=== PATIENT | female | born 1985 | race Caucasian/White ===

== ENCOUNTER 2025-06-16 00:05 | Emergency (ER) | payer OTHER, SELFPAY ==
[2025-06-16 00:05] VITALS: BP 153/70; PULSE 92; RESP 19; TEMP 36.6; O2SAT 98; BMI 37.0
--- NOTE | 2025-06-16 00:19 | CT_ITS ---
PROCEDURE: BRAIN/HEAD WITHOUT CONTRAST 06/16/2025 REASON FOR EXAM: HEAD INJURY TECHNIQUE: BRAIN/HEAD WITHOUT CONTRAST Coronal and Sagittal reconstruction series were provided. One or more dose reduction techniques were used (e.g., Automated exposure control, adjustment of the mA and/or kV according to patient size, use of iterative reconstruction technique. RADIATION DOSE SUMMARY: CTDlvol: 45 mGy DLP: 796. MGycm COMPARISON: No FINDINGS: No abnormal brain densities. No intracranial hemorrhage. No hydrocephalus or midline shift. No acute scalp or skull pathology. Unremarkable orbits. Clear sinuses. CT/Brain/Head without Contrast IMPRESSION: No acute intracranial findings. Reading Location: [place] [id number]
[2025-06-16] MEDS: Lidocaine 2% /Epi 1:100 (20ml) 20 ML VIAL INFILT (00:24)
--- OUTSIDE RECORDS SUMMARY | 2025-06-16 00:41 | XMS RPT_ITS | CCD ---
Author Organization [facility] Care Team Providers Care Bartender Manager Name Role Phone Emmy Josse Kehinde Primary Care Provider JOSSE BOOTH Primary Care Unavailable JORGE RODRÍGUEZ Attending Unavailable Juan Ramirez Attending Unavailable Juan Ramirez Attending Unavailable Medications Completed/Discontinued Medications Medication Drug Class(es) Dates Sig (Normalized) Sig (Original) EPINEPHrine / Lidocaine (2 sources) Antiarrhythmic, alpha-Adrenergic Agonist, beta-Adrenergic Agonist, Catecholamine, Amide Local Anesthetic Start: 01-13-2024 End: 01-13-2024 lidocaine-EPINEPH rine (Xylocaine W/EPI) 1 %-1:[id number] injection 5 mL 10 ml lidocaine hydrochloride 10 mg/ml injection (1 source) Antiarrhythmic, Amide Local Anesthetic Start: 08-20-2019 End: 08-20-2019 lidocaine PF 1 % injection 5 mL Problems Active Problems Problem Classification Problem Date Documented Da te Episodic/Chronic Administrative/social admission (1 source) Encounter for pre-employment examination; Translations: [Encounter for pre-employment examination] Onset: 01-13-2025 Episodic Allergic reactions (2 sources) Atopic dermatitis; Translations: [Atopic dermatitis, unspecified] Onset: 07-04-2020 09-13-2022 Chronic Open wounds of extremities (5 sources) Laceration of index finger; Translations: [Laceration of left wrist] Onset: 01-13-2024 01-13-2024 Episodic Past or Other Problems Problem Classification Problem Date Documented Da te Episodic/Chronic Residual codes; unclassified (2 sources) Family history of diabetes mellitus in first degree relative; Translations: [Family history of diabetes mellitus] Onset: 07-13-2020 09-13-2022 Episodic Results Test Name Value Interpretation Reference Range Facil ity Office Visit Reporton 2024 Office Visit Report 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 Allergies No Known Allergies Allergy (Unverified 01/13/25 14:44) Office Procedures [facility] Billing Sheet Testing Breath Alcohol Test Pre-Employment: Yes Pre-Employment Drug Screen: Yes Pre-Employment PE: Yes 01/20/2548 Date Juan IZQUIERDO Cosigner Signature: Date (if applicable) CC: Normal [facility] Urgent Care Visit Reporton 0 01-13-2025 Urgent Care Visit Report [facility] [address], [address] [place] [address] OFFICE VISIT Date of Service: 01/13/25 MR#: [id number] Acct: [id number] Name: SAVANNAH TINOCO Rep #: [id number] : 1985 Provider: TIMBO Cyr Age/Sex: 39/F Location: [facility] Status: Signed Intake Intake Visit 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 HPI HPI Details: SAVANNAH TINOCO, is a 39 F who presents to the office today for Office Procedures Physical Exam Coding PE Coding Pre-employment PE: Yes Coding Level of Care Code No Charge Diagnoses Encounter for pre-employment health screening examination Z02.1 Assessment and Plan Assessment and Plan (1) Encounter for pre-employment health screening examination: Status: Acute 01/13/25 1508 Date Juan Rothman Signature: Date (if applicable) CC: Normal [facility] Progress Noteon 01-16-2024 Progress Note Chart reviewed of ED follow up Seen in [facility] ED on 01/13/24 Reason: laceration Discharge instructions: Follow up with Occupational Health in 1 week [employer] [address] [facility] [phone] Called number of record,voicemail was full, unable to leave message. ED message and education sent via [employer] . If patient calls back, please assist with scheduling a ED follow up appointment. Normal [facility] ED Nursing Noteon 01-13-2024 ED Nursing Note Dc instructions and follow up care given to pt. Pt verbalizes understanding. Pt getting drug screen prior to dc Normal [facility] ED Nursing Note Pt presents to the ED w c/o a laceration. 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 Wound cleaned upon arrival. Pain level 3/10. Last tdap unknown Normal [facility] ED Provider Noteon ED Provider Note Emergency Department Encounter [facility] ED Patient: Savannah Tinoco : 1985 Date of Evaluation: 01/13/2024 ED Provider: Jorge Rodríguez DO Chief Complaint Chief Complaint Patient presents with Laceration AKHIOK Savannah Tinoco is a 38 y.o. female who presents to the emergency department complaining of laceration. 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 She sustained a small laceration. Denies numbness or tingling or other complaints. Unknown last tetanus vaccination. Additional history obtained from : n/a Barriers to obtaining history from patient: n/a ROS: Review of Systems completed as follows: (Bold = positive, Not bold = negative) GENERAL: fevers, chills, malaise ENT: runny nose, congestion, sore throat, ear pain NEURO: weakness, numbness of tingling, headache CARDIOVASCULAR: chest pain, syncope PULMONARY: shortness of breath, cough, wheezing GASTROINTESTINAL: nausea, vomiting, abdominal pain, diarrhea, constipation, MUSCULOSKELETAL: pain GENITAL/URINARY: dysuria, hematuria, increased urinary frequency, hesitancy, flank pain SKIN: rash, lesions, wound Past History Past Medical History: Diagnosis Date Family history of diabetes mellitus in father Mehran Tinoco, AROLDO 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 No pertinent surgical history. Social History Socioeconomic History Marital status: Single Tobacco Use Smoking status: Never Smokeless tobacco: Never Vaping Use Vaping Use: Never used Substance and Sexual Activity Alcohol use: Not Currently Drug use: Never Social History Narrative Single, engaged to Kenzei or Drinker. Employed at [employer], Since 2007. I have reviewed the history above as provided by nursing notes. Medications/Allergie s Previous Medications No medications on file No Known Allergies I have reviewed the history above as provided by nursing notes. Physical Exam ED Triage Vitals [01/13/24 0600] Temp Heart Rate Resp BP 36.9 ?C (98.5 ?F) 80 18 (!) 148/89 SpO2 Temp src Heart Rate Source Patient Position 99 % -- -- -- BP Location FiO2 (%) -- -- GENERAL: The patient appears nourished and normally developed. Vital signs as documented. EYES: PERRL. No scleral icterus or orbital trauma noted. HEENT: Mucous membranes moist. Nares patent without copious rhinorrhea. LUNGS: Lungs are clear to auscultation, without any respiratory distress. CARDIAC: Rhythm is regular. No murmur appreciated ABDOMEN: Nontender, soft, with no obvious masses, and no peritoneal signs. EXTREMITIES: Non edematous, with no obvious deformities. SKIN: 2 cm laceration to the palm of the right wrist. Mild subcutaneous fat showing. Patient has normal range of motion, normal sensation distally to the wound. There is no active bleeding. Capillary refill is normal. 2+ radial pulses. Good color, with no significant rashes. No pallor. NEURO: No obvious neurological deficits, normal sensation and strength bilaterally. Diagnostics Labs: Results for orders placed or performed in visit on 07/04/20 [facility] SURGICAL PATHOLOGY Result Value Ref Range SURGICAL PATHOLOGY REPORT SEE BELOW NA Radiographs: No orders to display Procedures/EKG: Laceration Repair Performed by: Jorge Rodríguez DO Authorized by: Jorge Rodríguez DO Consent: Consent obtained: Verbal Consent given by: Patient Risks discussed: Infection, pain, poor wound healing, vascular damage and nerve damage Alternatives discussed: No treatment [place] protocol: Patient identity confirmed: Verbally with patient Anesthesia: Anesthesia method: Local infiltration Local anesthetic: Lidocaine 1% WITH epi Laceration details: Location: Hand Hand location: L wrist Length (cm): 2 Pre-procedure details: Preparation: Patient was prepped and draped in usual sterile fashion Exploration: Hemostasis achieved with: Epinephrine and direct pressure Contaminated: no Treatment: Area cleansed with: Soap and water and Shur-Clens Amount of cleaning: Standard Irrigation solution: Tap water Skin repair: Repair method: Sutures Suture size: 4-0 Wound skin closure material used: vicryl rapide. Suture technique: Simple interrupted Number of sutures: 3 Approximation: Approximation: Close Repair type: Repair type: Simple Post-procedure details: Dressing: Open (no dressing) Procedure completion: Tolerated well, no immediate complications SCREENINGS EMERGENCY DEPARTMENT COURSE and DIFFERENTIAL DIAGNOSIS/MDM: Vitals: Vitals: 01/13/24 0600 BP: (!) 148/89 Pulse: 80 Resp: 18 Temp: 36.9 ?C (98.5 ?F) SpO2: 99% The patient presented with a chief complaint of laceration. Vital signs reviewed. Examination reveals a wound. I closed the wound as above after irrigation. I did not order x-rays and low concern for fracture, retained foreign b (more content not included)... Normal [facility] No Panel Informationon 01-13 Jorge Rodríguez DO 01/13/2024 6:30 AM Laceration Repair Performed by: Jorge Rodríguez DO Authorized by: Jorge Rodríguez DO Consent: Consent obtained: Verbal Consent given by: Patient Risks discussed: Infection, pain, poor wound healing, vascular damage and nerve damage Alternatives discussed: No treatment [place] protocol: Patient identity confirmed: Verbally with patient Anesthesia: Anesthesia method: Local infiltration Local anesthetic: Lidocaine 1% WITH epi Laceration details: Location: Hand Hand location: L wrist Length (cm): 2 Pre-procedure details: Preparation: Patient was prepped and draped in usual sterile fashion Exploration: Hemostasis achieved with: Epinephrine and direct pressure Contaminated: no Treatment: Area cleansed with: Soap and water and Shur-Clens Amount of cleaning: Standard Irrigation solution: Tap water Skin repair: Repair method: Sutures Suture size: 4-0 Wound skin closure material used: vicryl rapide. Suture technique: Simple interrupted Number of sutures: 3 Approximation: Approximation: Close Repair type: Repair type: Simple Post-procedure details: Dressing: Open (no dressing) Procedure completion: Tolerated well, no immediate complications [facility] Lac Repairon 08-20-2019 Hakeem Cope MD 08/20/2019 12:24 PM Lac Repair Date/Time: 08/20/2019 12:04 PM Performed by: Hakeem Cope MD Authorized by: Hakeem Cope MD Consent: Consent obtained: Verbal Anesthesia (see MAR for exact dosages): Anesthesia method: Local infiltration Local anesthetic: Lidocaine 1% w/o epi Laceration details: Location: Finger Finger location: L index finger Length (cm): 1.5 Repair type: Repair type: Simple Pre-procedure details: Preparation: Patient was prepped and draped in usual sterile fashion Exploration: Wound exploration: wound explored through full range of motion Contaminated: no Treatment: Area cleansed with: Betadine Amount of cleaning: Standard Irrigation solution: Sterile saline Irrigation method: Syringe Visualized foreign bodies/material removed: no Skin repair: Repair method: Sutures Suture size: 3-0 Suture material: Prolene Suture technique: Simple interrupted Number of sutures: 5 Approximation: Approximation: Close Post-procedure details: Dressing: Antibiotic ointment Patient tolerance of procedure: Tolerated well, no immediate complications [facility], [place] Vital Signs Date Time Vital Sign Value Performing Clinician Baron schmidt 01-13-2024 06:00-0500 Body temperature 98.49 [degF] Jorge Rodríguez DO [facility] 01-13-2024 06:00-0500 Diastolic blood pressure 89 mm[Hg] Jorge Nesheim DO Work Phone: [email or web address] 01-13-2024 06:00-0500 Heart rate 80 /min Jorge Nesheim DO Work Phone: [email or web address] 01-13-2024 06:00-0500 Respiratory rate 18 /min Jorge Nesheim DO Work Phone: [email or web address] 01-13-2024 06:00-0500 SaO2% (BldA) [Mass fraction] 99 % Jorge Nesheim DO Work Phone: [email or web address] 01-13-2024 06:00-0500 Systolic blood pressure 148 mm[Hg] Jorge Nesheim DO Work Phone: [facility] [employer] 08-20-2019 11:40-0400 BMI (Body Mass Index) 28.13 kg/m2 Hakeem [employer] [place], [place] 08-20-2019 11:40-0400 Body Temperature 97.81 [degF] [facility] [employer] [place], [place] 08-20-2019 11:40-0400 Body weight 83.92 kg [place] 08-20-2019 11:40-0400 BP Diastolic 90 mm[Hg] [place] 08-20-2019 11:40-0400 BP Systolic 132 mm[Hg] [place] 08-20-2019 11:40-0400 Height 172.7 cm [place] 08-20-2019 11:40-0400 Pulse (Heart Rate) 80 /min [place], [place] 08-20-2019 11:40-0400 Pulse Oximetry 99 % [place] 08-20-2019 11:40-0400 Respiratory Rate 14 /min [facility] [place] Encounters Encounter Date Encounter Type Care Provider Facility Start: 01-13-2025 End: 01-13-[address] [facility] Facility:[facility] Start: 01-13-2024 End: 01-13-2024 Emergency department patient visit JOSSE BOOTH [facility] Start: 01-13-2024 End: 01-13-2024 Emergency department patient visit Jorge Rodríguez DO Work Phone: [facility] ED Comment on above: Laceration of left w rist, initial encounter (Primary Dx) Start: 08-20-2019 End: 08-20-2019 Emergency department patient visit Hakeem Cope Work Phone: [facility] ED Comment on above: Laceration of left i ndex finger without foreign body without damage to nail, initial encounter (Primary Dx) Procedures Date Procedure Procedure Detail Performing Clinician Start: 01-13-2024 Simple repair scalp/neck/ax/genit/trunk 2.5cm/< Jorge Yuly Andieheim DO Work Phone: Start: 08-20-2019 LACERATION REPAIR Auschayito Cope Work Phone: Plan of Treatment Date Care Activity Detail Author Start: 2047 RSV Immunization age d 60 or older (1 - 1-dose 60+ series) RSV Immunization aged 60 or older (1 - 1-dose 60+ series) [facility] Start: 2037 Zoster Vaccines (1 of 2) Zoster Vacc conner (1 of 2) [facility] Start: 01-13-2034 DTaP/Tdap/Td Vaccine s (3 - Td or Tdap) DTaP/Tdap/Td Vaccines (3 - Td or Tdap) [facility] Start: 08-01-2023 COVID-19 Vaccine ( season) COVID-19 Vaccine ( season) [facility] Start: 08-01-2023 Influenza vaccination Influenza Vacc ine (#1) [facility] Start: 08-01-2019 Influenza vaccination Flu vaccine (# 1) [facility] [place] Start: 2017 Screening for malign ant neoplasm of cervix [facility] Start: 2008 Screening for malign ant neoplasm of cervix Pap Smear [facility] Start: 2005 Diabetes mellitus screening Diabetes Screening [facility] Start: 2005 Hepatitis C screening Hepatitis C Sc reening [facility] Start: 1999 Depression Screening Depression Scre ening [facility] Start: 1988 MMR Vaccines (1 of 1 - Standard series) MMR Vaccines (1 of 1 - Standard series) [facility] Start: 1988 Varicella vaccination Varicell a Vaccines (1 of 2 - 2-dose childhood series) [facility] Start: 1987 Hepatitis B Vaccines (1 of 3 - 3-dose series) Hepatitis B Vaccines (1 of 3 - 3-dose series) [facility] Start: 1987 HIV screening HIV Screening [facility] Immunizations Immunization Date Immunization Notes Care Provider Fa ciarraty 01-13-2024 tetanus toxoid, redu faizan diphtheria toxoid, and acellular pertussis vaccine, adsorbed Jorge Nesheim DO Work Phone: [facility] 10-02-2021 Influenza, injectabl e, quadrivalent, preservative free Jorge Nesheim DO Work Phone: [facility] 10-02-2021 influenza virus vaccine, unspecified formulation Jorge Nesheim DO Work Phone: [facility] 03-24-2021 Pfizer SARS-CoV-2 Vaccination Jorge Nesheim DO Work Phone: [facility] 03-03-2021 Pfizer SARS-CoV-2 Vaccination Jorge Nesheim DO Work Phone: [facility] 08-20-2019 tetanus toxoid, redu faizan diphtheria toxoid, and acellular pertussis vaccine, adsorbed [facility] Work Phone: 08-20-2019 diphtheria, tetanus toxoids and acellular pertussis vaccine, unspecified formulation [facility] [place] , [place] Payers Date Payer Category Payer Self-pay 2024 Worker's Compensation 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 2024 Worker's Compensation [id number] Unknown [id number] Unknown [id number] Social History Date Type Detail Facility Start: 08-20-2019 [facility] Start: 08-20-2019 End: 12-19-2021 Alcohol intake Not Currently [facility] [employer] [place] Sex Assigned At [facility] [employer] [facility] Start: 01-13-2024 Alcohol intake Ex-drinker (finding) [facility] Start: 12-19-2021 History of Social function [facility] Start: 1985 Sex Assigned At Female S [facility] Start: 09-19-2022 Gender identity Identifies as female gender (finding) [facility] Start: 09-19-2022 Sexual orientation Heterosexual (fin ding) [facility] Hospital Discharge instructions 01-13-2024 Discharge InstructionsAttachments Note Date & Type Note Facility 01-13-2024 Hospital Discharg e instructions Jorge Rodríguez, DO - 01/13/2024 6:22 AM EST Return to Work Form [facility] Emergency Department (ED) [] [facility] [phone] [] [place] [phone] [] [place] [phone] [] [place] [phone] *Show this 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 It is your employer's responsibility to determine if restrictions can be accommodated. Today's Date: 01/13/24 Patient Name: Savannah Tinoco : 1985 Employee may return to work with the following restrictions on (Date): 01/14/24 [] No bending [] No twisting/turning [] No squatting [] No climbing [] No prolonged sitting [] No standing longer than __ minutes [] No use of __ hand/arm/shoulder [] No pushing greater than __ pounds [] No pulling greater than __ pounds [] No lifting greater than __ pounds [] No reaching above shoulder height [] Do not operate safety sensitive machinery [x] Keep bandage/splint clean and dry - wound must be covered Other Restrictions/Comments: __ ED Provider Signature: Jorge Rodríguez DO Work injuries require treatment by a [facility] certified provider. If follow-up care is needed please call one of the [facility] locations below. [place]: [phone], [address], [place] [address] [place]: [phone] [address] [place] [address] [place]: [phone] [place] [address] [place] [address] [place]: [phone] [address], [place] [address] [place]: [phone] [address], [address], [place] [address] [place]: [phone], [place] [address] The following attachments cannot be sent through Care Everywhere.Laceration Repair With Stitches ED ([place])documented in this encounter [facility] Emergency department Note 01-13-2024 Jorge Rodríguez DO - 01/13/2024 5:50 AM Alisia Nicholas RN - 01/13/2024 5:50 AM Alisia Nicholas RN - 01/13/2024 5:50 AM EST Note Date & Type Note Facility 01-13-2024 Emergency departm ent Note Associated Order(s): Laceration Repair Emergency Department Encounter [facility] ED Patient: Savannah Tinoco : 1985 Date of Evaluation: 01/13/2024 ED Provider: Jorge Rodríguez DO Chief Complaint Chief Complaint Patient presents with Laceration AKHIOK Savannah Tinoco is a 38 y.o. female who presents to the emergency department complaining of laceration. 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 She sustained a small laceration. Denies numbness or tingling or other complaints. Unknown last tetanus vaccination. Additional history obtained from : n/a Barriers to obtaining history from patient: n/a ROS: Review of Systems completed as follows: (Bold = positive, Not bold = negative) GENERAL: fevers, chills, malaise ENT: runny nose, congestion, sore throat, ear pain NEURO: weakness, numbness of tingling, headache CARDIOVASCULAR: chest pain, syncope PULMONARY: shortness of breath, cough, wheezing GASTROINTESTINAL: nausea, vomiting, abdominal pain, diarrhea, constipation, MUSCULOSKELETAL: pain GENITAL/URINARY: dysuria, hematuria, increased urinary frequency, hesitancy, flank pain SKIN: rash, lesions, wound Past History Past Medical History: Diagnosis Date Family history of diabetes mellitus in father Mehran Tinoco, AROLDO 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 No pertinent surgical history. Social History Socioeconomic History Marital status: Single Tobacco Use Smoking status: Never Smokeless tobacco: Never Vaping Use Vaping Use: Never used Substance and Sexual Activity Alcohol use: Not Currently Drug use: Never Social History Narrative Single, engaged to Kenzei or Drinker. Employed at [employer], Since 2007. I have reviewed the history above as provided by nursing notes. Medications/Allergies Previous Medications No medications on file No Known Allergies I have reviewed the history above as provided by nursing notes. Physical Exam ED Triage Vitals [01/13/24 0600] Temp Heart Rate Resp BP 36.9 C (98.5 F) 80 18 (!) 148/89 SpO2 Temp src Heart Rate Source Patient Position 99 % -- -- -- BP Location FiO2 (%) -- -- GENERAL: The patient appears nourished and normally developed. Vital signs as documented. EYES: PERRL. No scleral icterus or orbital trauma noted. HEENT: Mucous membranes moist. Nares patent without copious rhinorrhea. LUNGS: Lungs are clear to auscultation, without any respiratory distress. CARDIAC: Rhythm is regular. No murmur appreciated ABDOMEN: Nontender, soft, with no obvious masses, and no peritoneal signs. EXTREMITIES: Non edematous, with no obvious deformities. SKIN: 2 cm laceration to the palm of the right wrist. Mild subcutaneous fat showing. Patient has normal range of motion, normal sensation distally to the wound. There is no active bleeding. Capillary refill is normal. 2+ radial pulses. Good color, with no significant rashes. No pallor. NEURO: No obvious neurological deficits, normal sensation and strength bilaterally. Diagnostics Labs: Results for orders placed or performed in visit on 07/04/20 [facility] SURGICAL PATHOLOGY Result Value Ref Range SURGICAL PATHOLOGY REPORT SEE BELOW NA Radiographs: No orders to display Procedures/EKG: Laceration Repair Performed by: Jorge Rodríguez DO Authorized by: Jorge Rodríguez DO Consent: Consent obtained: Verbal Consent given by: Patient Risks discussed: Infection, pain, poor wound healing, vascular damage and nerve damage Alternatives discussed: No treatment [place] protocol: Patient identity confirmed: Verbally with patient Anesthesia: Anesthesia method: Local infiltration Local anesthetic: Lidocaine 1% WITH epi Laceration details: Location: Hand Hand location: L wrist Length (cm): 2 Pre-procedure details: Preparation: Patient was prepped and draped in usual sterile fashion Exploration: Hemostasis achieved with: Epinephrine and direct pressure Contaminated: no Treatment: Area cleansed with: Soap and water and Shur-Clens Amount of cleaning: Standard Irrigation solution: Tap water Skin repair: Repair method: Sutures Suture size: 4-0 Wound skin closure material used: vicryl rapide. Suture technique: Simple interrupted Number of sutures: 3 Approximation: Approximation: Close Repair type: Repair type: Simple Post-procedure details: Dressing: Open (no dressing) Procedure completion: Tolerated well, no immediate complications SCREENINGS EMERGENCY DEPARTMENT COURSE and DIFFERENTIAL DIAGNOSIS/MDM: Vitals: Vitals: 01/13/24 0600 BP: (!) 148/89 Pulse: 80 Resp: 18 Temp: 36.9 C (98.5 F) SpO2: 99% The patient presented with a chief complaint of laceration. Vital signs reviewed. Examination reveals a wound. I closed the wound as above after irrigation. I did not order x-rays and low concern for fracture, retained foreign body. There was no evidence of nerve or vascular injury. Patient tolerated procedure well, will anticipate dissolving of sutures in approximately 1 week. Discussed that if they do not resolve she will need to follow-up with Corporate medicine for wound reevaluation. Discussed watching for signs of infection return if this develops. Patient was discharged home. Diagnoses as of 01/13/24 0622 Laceration of left wrist, initial encounter Diagnostic tests considered but not performed: Considered x-ray but had low suspicion for fracture or foreign body ED Medications managed: Medications Tdap (BoostRIX) vaccine 0.5 mL (has no administration in time range) lidocaine-EPINEPHrine (Xylocaine W/EPI) 1 %-1:250124 injection 5 mL (has no administration in time range) Prescription drugs considered: There is no evidence of wound contamination that would require initiation of antibiotics Patients symptoms are consistent with sepsis, severe sepsis or septic shock (if yes, use .sepsiscoremeasure) - no Final Impression 1. Laceration of left wrist, initial encounter DISPOSITION discharge Comment: Please note this report has been produced using speech recognition software and may contain errors related to that system including errors in grammar, punctuation, and spelling, as well as words and phrases that may be inappropriate. If there are any questions or concerns please feel free to contact the dictating provider for clarification. Jorge Rodríguez DO [employer] Jorge Rodríguez DO 01/13/24 0630 Pt presents to the ED w c/o a laceration. 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 Wound cleaned upon arrival. Pain level 3/10. Last tdap unknown Dc instructions and follow up care given to pt. Pt verbalizes understanding. Pt getting drug screen prior to dc documented in this encounter [facility] Emergency department Triage note 01-13-2024 Danelle Nicholas RN - 01/13/2024 5:50 AM EST Note Date & Type Note Facility 01-13-2024 Emergency departm ent Triage note Pt presents to the ED w c/o a laceration. 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 Wound cleaned upon arrival. Pain level 3/10. Last tdap unknown [facility] Emergency department Triage note 01-13-2024 Danelle Nicholas RN - 01/13/2024 5:50 AM EST Note Date & Type Note Facility 01-13-2024 Emergency departm ent Triage note Dc instructions and follow up care given to pt. Pt verbalizes understanding. Pt getting drug screen prior to dc [facility] Physician Emergency department Note 01-13-2024 Jorge Rodríguez DO - 01/13/2024 5:50 AM EST Note Date & Type Note Facility 01-13-2024 Physician Emergen cy department Note Associated Order(s): Laceration Repair Emergency Department Encounter [facility] ED Patient: Savannah Tinoco : 1985 Date of Evaluation: 01/13/2024 ED Provider: Jorge Rodríguez DO Chief Complaint Chief Complaint Patient presents with Laceration AKHIOK Savannah Tinoco is a 38 y.o. female who presents to the emergency department complaining of laceration. 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 She sustained a small laceration. Denies numbness or tingling or other complaints. Unknown last tetanus vaccination. Additional history obtained from : n/a Barriers to obtaining history from patient: n/a ROS: Review of Systems completed as follows: (Bold = positive, Not bold = negative) GENERAL: fevers, chills, malaise ENT: runny nose, congestion, sore throat, ear pain NEURO: weakness, numbness of tingling, headache CARDIOVASCULAR: chest pain, syncope PULMONARY: shortness of breath, cough, wheezing GASTROINTESTINAL: nausea, vomiting, abdominal pain, diarrhea, constipation, MUSCULOSKELETAL: pain GENITAL/URINARY: dysuria, hematuria, increased urinary frequency, hesitancy, flank pain SKIN: rash, lesions, wound Past History Past Medical History: Diagnosis Date Family history of diabetes mellitus in father AROLDO Viera 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 No pertinent surgical history. Social History Socioeconomic History Marital status: Single Tobacco Use Smoking status: Never Smokeless tobacco: Never Vaping Use Vaping Use: Never used Substance and Sexual Activity Alcohol use: Not Currently Drug use: Never Social History Narrative Single, engaged to [employer] or [employer]. Employed at [employer], Since 2007. I have reviewed the history above as provided by nursing notes. Medications/Allergies Previous Medications No medications on file No Known Allergies I have reviewed the history above as provided by nursing notes. Physical Exam ED Triage Vitals [01/13/24 0600] Temp Heart Rate Resp BP 36.9 C (98.5 F) 80 18 (!) 148/89 SpO2 Temp src Heart Rate Source Patient Position 99 % -- -- -- BP Location FiO2 (%) -- -- GENERAL: The patient appears nourished and normally developed. Vital signs as documented. EYES: PERRL. No scleral icterus or orbital trauma noted. HEENT: Mucous membranes moist. Nares patent without copious rhinorrhea. LUNGS: Lungs are clear to auscultation, without any respiratory distress. CARDIAC: Rhythm is regular. No murmur appreciated ABDOMEN: Nontender, soft, with no obvious masses, and no peritoneal signs. EXTREMITIES: Non edematous, with no obvious deformities. SKIN: 2 cm laceration to the palm of the right wrist. Mild subcutaneous fat showing. Patient has normal range of motion, normal sensation distally to the wound. There is no active bleeding. Capillary refill is normal. 2+ radial pulses. Good color, with no significant rashes. No pallor. NEURO: No obvious neurological deficits, normal sensation and strength bilaterally. Diagnostics Labs: Results for orders placed or performed in visit on 07/04/20 [facility] SURGICAL PATHOLOGY Result Value Ref Range SURGICAL PATHOLOGY REPORT SEE BELOW NA Radiographs: No orders to display Procedures/EKG: Laceration Repair Performed by: Jorge Rodríguez DO Authorized by: Jorge Rodríguez DO Consent: Consent obtained: Verbal Consent given by: Patient Risks discussed: Infection, pain, poor wound healing, vascular damage and nerve damage Alternatives discussed: No treatment [place] protocol: Patient identity confirmed: Verbally with patient Anesthesia: Anesthesia method: Local infiltration Local anesthetic: Lidocaine 1% WITH epi Laceration details: Location: Hand Hand location: L wrist Length (cm): 2 Pre-procedure details: Preparation: Patient was prepped and draped in usual sterile fashion Exploration: Hemostasis achieved with: Epinephrine and direct pressure Contaminated: no Treatment: Area cleansed with: Soap and water and Shur-Clens Amount of cleaning: Standard Irrigation solution: Tap water Skin repair: Repair method: Sutures Suture size: 4-0 Wound skin closure material used: vicryl rapide. Suture technique: Simple interrupted Number of sutures: 3 Approximation: Approximation: Close Repair type: Repair type: Simple Post-procedure details: Dressing: Open (no dressing) Procedure completion: Tolerated well, no immediate complications SCREENINGS EMERGENCY DEPARTMENT COURSE and DIFFERENTIAL DIAGNOSIS/MDM: Vitals: Vitals: 01/13/24 0600 BP: (!) 148/89 Pulse: 80 Resp: 18 Temp: 36.9 C (98.5 F) SpO2: 99% The patient presented with a chief complaint of laceration. Vital signs reviewed. Examination reveals a wound. I closed the wound as above after irrigation. I did not order x-rays and low concern for fracture, retained foreign body. There was no evidence of nerve or vascular injury. Patient tolerated procedure well, will anticipate dissolving of sutures in approximately 1 week. Discussed that if they do not resolve [facility]. Discussed watching for signs of infection return if this develops. Patient was discharged home. Diagnoses as of 01/13/24 0622 Laceration of left wrist, initial encounter Diagnostic tests considered but not performed: Considered x-ray but had low suspicion for fracture or foreign body ED Medications managed: Medications Tdap (BoostRIX) vaccine 0.5 mL (has no administration in time range) lidocaine-EPINEPHrine (Xylocaine W/EPI) 1 %-1:686996 injection 5 mL (has no administration in time range) Prescription drugs considered: There is no evidence of wound contamination that would require initiation of antibiotics Patients symptoms are consistent with sepsis, severe sepsis or septic shock (if yes, use .sepsiscoremeasure) - no Final Impression 1. Laceration of left wrist, initial encounter DISPOSITION discharge Comment: Please note this report has been produced using speech recognition software and may contain errors related to that system including errors in grammar, punctuation, and spelling, as well as words and phrases that may be inappropriate. If there are any questions or concerns please feel free to contact the dictating provider for clarification. Jorge Rodríguez DO [employer] Jorge Rodríguez DO 01/13/24 0630 [facility] Evaluation note Note Date & Type Note Facility Evaluation note Diagnosis Laceration of left wrist, initial encounter- Primary documented in this encounter [facility] Discharge Instructions * Instructions* Hakeem Cope MD - 08/20/2019 Return to Work Form [facility] Emergency Department (ED) ? [facility] [phone] ? [place] [phone] ? [place] [phone] ? [place] [phone] ? 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 It is your employer's responsibility to determine if restrictions can be accommodated. Today's Date: 08/20/19 Patient Name: Savannah Tinoco : 1985 Employee may return to work no restrictions on (Date): 08/21/19 Other Restrictions/Comments: __ ED Provider Signature: Hakeem Cope MD Work injuries require treatment by a [facility] certified provider. If follow-up care is needed please call one of the [facility] locations below. [place]: [phone] [address], [address], [place] [address] [place]: [phone] [address] [place] [address] [place]: [phone] [address], [place] [address] [place]: [phone] [address], [place] [address] [place]: [phone] [address], [place] [address] * Attachments The following attachments cannot be sent through Care Everywhere. * Hand Laceration: Stitches (Grenadian) documented in this encounter Assessments Diagnosis Laceration of left index finger without foreign body without damage to nail, initial encounter- Primary Summary Purpose Family History No Family History Records FoundNo Family History Records Found Advance Directives No Advanced Directives Records FoundNo Advanced Directives Records Found Additional Source Comments Reason for Visit (unrecogniz ed section and content) Reason Comments Laceration Scheduled Active and Recently Administ ered Medications (unrecognized section and content) Medication Order 01/11/2024 01/12/2024 01/13/2024 lidocaine-EPINEPHrine (Xylocaine W/EPI) 1 %-1:216310 injection 5 mL (COMPLETED) 5 mL, Infiltration, Once, On Fri01/13/24 at 0610, For 1 dose 0628 (Given - Provid er: Danelle Nicholas, RN - Comment: given per dr rodríguez) Care Teams (unrecognized sec tion and content) Bartender Manager Relationship Specialty Start Date End Date Josse Booth DO [address] [place] [address] PCP - General 08/20/19 INFORMATION SOURCE (unrecogn ized section and content) DATE CREATED AUTHOR 01/18/2024 [employer] [facility] DATE CREATED AUTHOR AUTHOR'S ORGANIZ ATION 01/22/2025 [facility] FOR RECORDS PERTAINING TO PATIENTS WHO ARE OR HAVE BEEN ENROLLED IN A CHEMICAL DEPENDENCY/SUBSTANCEABUSE PROGRAM, SOME INFORMATION MAY BE OMITTED. This clinical summary was aggregated from multiple sources. Caution should be exercised in using it in the provision of clinical care. This summary normalizes information from multiple sources, and as a consequence, information in this document may materially change the coding, format and clinical context of patient data. In addition, data may be omitted in some cases. CLINICAL DECISIONS SHOULD BE BASED ON THE PRIMARY CLINICAL RECORDS. [employer] provides no warranty or guarantee of the accuracy or completeness of information in this document.
--- NOTE | 2025-06-16 01:16 | EX.ED.DYSGE1 ---
HPI History of Present Illness Chief Complaint: Laceration Informant: patient Narrative Narrative: Patient is a 39-year-old female who reports no significant past medical history. He states just prior to arrival she excellently struck her right side of the head off a small machine at work. She states she sustained a laceration to the right side of her head. She denies any loss of consciousness history of bleeding disorder or blood thinner use. She reports her tetanus status is up-to-date. She denies any headache light sensitivity or change in vision. However because of the head injury and now a laceration there was concern she may need to have the wound closed and was brought in for evaluation. [facility] Medical History no medical history Home Medications ?Medication ?Instructions ?Recorded ?Last Taken ?Type NK 01/13/25 Unknown History Allergy/AdvReac Type Severity Reaction Status Date / Time No Known Allergies Allergy Verified 06/16/25 00:05 Surgical History no surgical history Social History Smoking Status: Never smoker [facility] ED Constitutional Constitutional ED: Denies chills or fever(s) Eyes Eyes: Denies blurry vision or change in vision Cardiovascular Cardiovascular: Reports other Details: Negative syncope ; Denies chest pain Respiratory/Chest Respiratory/Chest: Denies cough or dyspnea Gastrointestinal Gastrointestinal: Denies abdominal pain, diarrhea, nausea or vomiting Musculoskeletal Musculoskeletal: Denies neck pain Integumentary Reports other Details: Positive scalp laceration Neurologic Neurologic: Denies headache(s), paresthesias or weakness Hematologic/Lymphatic Hematologic/Lymphatic: Denies easy bleeding or easy bruising EXAM Physical Exam Const Vital Signs: 06/16/25 00:05 06/16/25 01:21 Temperature 98 F 98 F Temperature Source Temporal Pulse Rate 92 72 Respiratory Rate 19 H 18 Blood Pressure 153/70 H 140/81 H Blood Pressure Mean 97 100 Pulse Ox 98 100 Oxygen Delivery Method Room Air Positive well nourished, well developed and obese General Appearance ED: well developed Nutritional Appearance: obese HEENT HEENT Narrative: No signs of depressed or basilar skull fracture Patient has a small 1 x 2 hematoma along the right temporal portion of her scalp There is a 2 cm linear subcutaneous layer deep laceration in the center of this with mild ooze of blood and no retained foreign body Eyes PERRL and EOMs intact bilaterally Neck supple Neck Narrative: No bony deformity or step-off of the cervical spine no midline tenderness to palpation Resp normal respiratory effort and clear to auscultation bilaterally Cardio regular rate and regular rhythm Extremity normal to inspection Neuro oriented x3, CN's II-XII intact bilaterally and no sensory deficits noted Sensorium / Orientation: alert Motor Exam: strength 5/5 throughout Psych mental status grossly normal Skin Skin Narrative: Hematoma with laceration to the scalp as documented above MDM MDM MDM Narrative Medical decision making narrative: Patient reported mechanical injury to her head/scalp. In order to rule out skull fracture versus traumatic subarachnoid or subdural hemorrhage I did elect to perform a head CT. Head CT revealed no acute finding. The wound is linear with minimal ooze of blood and subcutaneous layer deep and therefore I do feel would be amenable to sutures. Therefore the wound was closed as documented below. The patient reports her tetanus status is currently up-to-date and therefore does not want a tetanus shot. She is not immunosuppressed and there is no signs of secondary infection so there is no need for prophylactic antibiotic. Therefore at this time she does not have skull fracture or brain bleed based on CT scan and based on symptoms there are no findings consistent with concussion. Now the wound is close she is otherwise safe for discharge and can return to work Patient had the right side of her scalp cleaned with chlorhexidine. It was anesthetized with 5 mL of 2% lidocaine with epinephrine and local fashion. Then six 4-0 Ethilon sutures were placed in simple interrupted fashion to bring the wound edge together well with good approximation. Patient tolerated the procedure well without complication History & Record Review Discussion w/independent historian: Patient Radiography Diagnostic Testing: Clinical Impression(s) from Imaging Studies Brain CT 06/16/25 00:19 IMPRESSION: No acute intracranial findings. Reading Location: [place] [address] Discharge Plan Triage Chief Complaint: Laceration ED Provider: Raz Gilbert Dx/Rx/DC Orders Clinical Impression: Head injury, Laceration of scalp Instructions: ED Head Injury (Adult), ED Laceration Scalp Stitches or Nelly Prescriptions: No Action NK Primary Care Provider: Care Physician,No Primary Referrals: [facility] [Provider Group] Care Physician,No Primary [Primary Care Provider] - Activity Restrictions/Additional Instructions: Please return to the ER or see your family doctor and/or the [facility] in 7 days for suture removal. Your head CT revealed no signs of skull fracture or brain bleed and clinically do not have any signs of concussion. You may continue normal activities without any concern. Print Language: Pashto Disposition Disposition: Home, Self Care Discharge Date/Time: 06/16/25 01:26
[2025-06-16 01:21] VITALS: BP 140/81; PULSE 72; RESP 18; TEMP 36.6; O2SAT 100
== END 2025-06-16 01:26 | disposition home or self-care (01) ==
PROVIDERS: Emergency Provider Emergency Medicine; Visit Provider Emergency Medicine
DX: S01.01XA Laceration without foreign body of scalp, initial encounter (principal); W22.09XA Striking against other stationary object, initial encounter; Y99.0 Civilian activity done for income or pay; E66.9 Obesity, unspecified
CPT/HCPCS: 12001; 70450; 99283